=== PATIENT | female | born 1960 | race Caucasian/White ===

== ENCOUNTER 2019-03-21 05:46 | Day surgery (SDC) | payer MEDICAID ==
[~2019-03-21] VITALS: Ht 154.9 cm; Wt 53.2 kg
[2019-03-21 07:05] VITALS: Ht 154.9 cm; Wt 53.2 kg
[2019-03-21] MEDS ORDERED: NEXIUM (07:13)
[2019-03-21] MEDS ORDERED: ZANTAC (07:13)
[2019-03-21 07:30] VITALS: BP 172/86; PULSE 90; RESP 16
[2019-03-21] MEDS ORDERED: MIDAZOLAM 1 MG/ML 2 ML INJ ONE (08:23)
[2019-03-21] MEDS ORDERED: FENTAnyl 50 MCG/ML VIAL ONE (08:23)
== END 2019-03-21 10:06 | disposition home or self-care (01) ==
LOC: GIL 05:46
PROVIDERS: ATTEND Internal Medicine Gastroenterology
DX: K44.9 Diaphragmatic hernia without obstruction or gangrene (principal); K21.9 Gastro-esophageal reflux disease without esophagitis; K29.60 Other gastritis without bleeding
CPT/HCPCS: 43239; 88305; J2250; J3010; Z7610